=== PATIENT | female | born 1965 | race Caucasian/White ===

== ENCOUNTER 2019-01-09 08:12 | Day surgery (SDC) | payer BC ==
[~2019-01-09 08:12] MED LIST: Bacitracin Oint 1 GM U/D Packet ONE; Lidocaine 1% with EPINEPHrine 1:100,000 50 ML MDV ONE; Lidocaine/Prilocaine 2.5-2.5% Crm 5 GM Tube ONE; Mineral Oil 10 ML Bottle ONE
[2019-01-09] MEDS ORDERED: Sodium Chloride 0.9% 1,000 ML IV SCH (08:45)
[2019-01-09] MEDS ORDERED: ceFAZolin 2 GM in Premix Bag 1 BAG IV ONE (09:30)
[2019-01-09] MEDS ORDERED: Propofol 200 MG/20 ML SDV ONE ×2 (09:42→10:11)
[2019-01-09] MEDS ORDERED: Midazolam 1 MG/ML 2 ML SDV ONE (09:42)
[2019-01-09] MEDS ORDERED: fentaNYL 100 MCG/2 ML SDV ONE (09:42)
--- NOTE | 2019-01-09 12:45 | OR ---
DATE OF PROCEDURE: 01/09/2019 PROCEDURES: 1. Surgical preparation of recipient site by excision of open wound (36496). 2. Split-thickness skin graft, left Achilles (76964), area grafted 7.1 cm x 2.1 cm. COMPLICATIONS: None. SIX SIGMA PROJECT MANAGER: None. 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 RISKS: Risks, benefits, alternatives, and limitations including, but not limited to infection, bleeding, and revisional surgery required. The patient was also explained the higher risk due to her history of active smoking. PROCEDURE IN DETAIL: The patient was placed in right lateral decubitus position. The donor site would be from the left thigh. This was prepped and draped. Mineral oil was used to prep and the harvester was set at 15,000th. Two strips approximately 5 cm in size were able to be harvested. Minimal bleeding was controlled with lidocaine after harvest. Prior to this, the donor site had been prepared by excising the chronic wound area with a 15 blade and controlled with cautery and direct pressure. Once the donor site was prepared, the skin graft was meshed in a 1.5:1 ratio. Proper orientation was kept at all times to ensure no clipping of the graft. This was then secured into place with a combination of chromic sutures and patricia. dressings were then applied along with a gentle pressure dressing. The donor site received a DuoDerm with nine 5 mm holes punched within it and then secondary and tertiary dressings. The patient tolerated the procedure well. Ruben Coto MD /[id number]
== END 2019-01-09 11:49 | disposition home or self-care (01) ==
LOC: JP.SDS 08:12
PROVIDERS: ATTEND Surgery
DX: S86.012A Strain of left Achilles tendon, initial encounter (principal); F17.210 Nicotine dependence, cigarettes, uncomplicated; I10 Essential (primary) hypertension; Z88.5 Allergy status to narcotic agent
CPT/HCPCS: 15004; 15120; A9270; J2250; J2704; J3010; J7030

== ENCOUNTER 2019-07-10 08:18 | Day surgery (SDC) | payer BC ==
[2019-07-10] MEDS ORDERED: Sodium Chloride 0.9% 1,000 ML IV SCH (09:00)
[2019-07-10] MEDS ORDERED: ceFAZolin 2 GM in Sodium Chloride 0.9% 50 ML IV ONE (09:30)
[2019-07-10] MEDS ORDERED: Lidocaine/Prilocaine 2.5-2.5% Crm 5 GM Tube ONE (10:25)
[2019-07-10] MEDS ORDERED: Mineral Oil 10 ML Bottle ONE ×3 (10:26→10:29)
[2019-07-10] MEDS ORDERED: Lidocaine 1% with EPINEPHrine 1:100,000 50 ML MDV ONE (10:26)
[2019-07-10] MEDS ORDERED: Bacitracin Oint 28.35 GM Tube ONE (10:27)
[2019-07-10] MEDS ORDERED: Propofol 200 MG/20 ML SDV ONE ×2 (11:24→12:45)
[2019-07-10] MEDS ORDERED: Midazolam 1 MG/ML 2 ML SDV ONE ×2 (11:24→12:43)
[2019-07-10] MEDS ORDERED: fentaNYL 100 MCG/2 ML SDV ONE ×2 (11:24→13:10)
--- NOTE | 2019-07-10 15:28 | OR ---
DATE OF PROCEDURE: 07/10/2019 SURGEON: Ruben Coto MD PROCEDURES: 1. Surgical preparation of donor site left ankle/foot (68858). 2. Split-thickness left Achilles area/foot (28162). COMPLICATIONS: None. OYSTER WASHER: None. ANESTHESIA: MAC/local. PREOPERATIVE DIAGNOSIS: Chronic wound requiring a repeat skin graft in a smoker. POSTOPERATIVE DIAGNOSIS: Chronic wound requiring a repeat skin graft in a smoker. PROCEDURE IN DETAIL: The patient was placed in a supine position. The donor site would be the left leg. This was harvested in the anterior thigh using a 15,000th dermatome. The area of harvesting was approximately 1 cm x 2.5 cm. Surgical preparation of the donor site was performed by excising the nonviable tissue using a 15 blade. The graft was then meshed in a 1.5:1 ratio. This was then hand sewed using a fast dissolving chromic suture. The donor site then had a DuoDerm with 3 mm holes punched in x9 and then an Pito dressing. The recipient site had bacitracin, Adaptic, 4x4s, Kerlix, and Pito along with placement of Cam boot. The patient tolerated the procedure well. Ruben Coto MD /[id number]
== END 2019-07-10 15:02 | disposition home or self-care (01) ==
LOC: JP.SDS 08:18
PROVIDERS: ATTEND Surgery
DX: S81.802A Unspecified open wound, left lower leg, initial encounter (principal); I10 Essential (primary) hypertension; F17.210 Nicotine dependence, cigarettes, uncomplicated; F10.10 Alcohol abuse, uncomplicated; X58.XXXA Exposure to other specified factors, initial encounter; Z79.899 Other long term (current) drug therapy
CPT/HCPCS: A9270-GY; J0690; J2250; J2704; J3010; J7030; J7050

== ENCOUNTER 2024-05-24 18:55 | Inpatient (IN) | payer BC ==
[2024-05-24 19:28] LABS: BASOPHILS ABSOLUTE AUTO 0.03 K/uL (0.00-0.10); BASOPHILS PERCENT AUTO 0.2 % (0.1-1.3); EOSINOPHILS ABSOLUTE AUTO 0.02 K/uL (0.00-0.40); EOSINOPHILS PERCENT AUTO 0.1 % (0.0-5.4); HEMATOCRIT 39.5 % (34.3-46.0); IMMATURE GRAN ABSOLUTE AUTO 0.07 K/uL (0.00-0.23); IMMATURE GRAN PERCENT AUTO 0.4 % (0.0-0.7); LYMPHOCYTES ABSOLUTE AUTO 0.81 K/uL (0.8-3.3); LYMPHOCYTES PERCENT AUTO 5.2 % (11.4-47.7); MEAN CORPUSCULAR HGB CONC 35.4 g/dL (31.6-35.5); MEAN CORPUSCULAR VOLUME 104.5 fL (81.4-99.0); MONOCYTES ABSOLUTE AUTO 1.07 K/uL (0.20-0.90); MONOCYTES PERCENT AUTO 6.8 % (3.3-12.6); NEUTROPHILS ABSOLUTE AUTO 13.64 K/uL (1.0-7.6); NEUTROPHILS PERCENT AUTO 87.3 % (40.0-78.1); PLATELET COUNT,PLT 176 K/uL (130-375); RED BLOOD CELL COUNT 3.78 M/uL (3.77-5.24); WHITE BLOOD CELL COUNT,WBC 15.6 K/uL (3.2-11.0)
[2024-05-24] MEDS: fentaNYL 100 MCG/2 ML SDV IVPUSH ONE ×2 (19:28→21:43)
[2024-05-24] MEDS: Sodium Chloride 0.9% 10 ML Syringe FLUSH ONE ×2 (19:31→22:21)
[2024-05-24 19:43] LABS: CALCIUM 9.8 mg/dL (8.5-10.1); CREATININE 1.1 mg/dL (0.6-1.0); EST CRCL DRUG DOSING (CG) 56.92 mL/min; POTASSIUM,K 3.9 mmol/L (3.6-5.2)
[2024-05-24 19:46] LABS: ANION GAP 15.9 mmol/L (5.0-14.0)
[2024-05-24] MEDS: Iopamidol 612 MG/ML 100 ML Bottle IV SCH ×2 (20:58→22:21)
[2024-05-24] MEDS: Sodium Chloride 0.9% 60 ML IV SCH ×2 (20:58→22:21)
[2024-05-24 22:30] LABS: A/G RATIO 1.1 (1.2-2.2); ALBUMIN 4.2 g/dL (3.4-5.0); BILIRUBIN DIRECT 0.3 mg/dL (0.0-0.2); BILIRUBIN INDIRECT 0.4; BILIRUBIN TOTAL 0.7 mg/dL (0.2-1.0); PROTEIN TOTAL,TP 7.9 g/dL (6.4-8.2)
[2024-05-24] MEDS: Lidocaine 1% with EPINEPHrine 1:100,000 20 ML MDV INJECT ONE (23:20)
[2024-05-24] MEDS: Bupivacaine 0.5%/EPINEPHrine 1:200,000 50 ML MDV NERVRT ONE (23:20)
[2024-05-25] MEDS: fentaNYL 100 MCG/2 ML SDV IVPUSH ONE (00:05)
[2024-05-25] MEDS ORDERED: Ketorolac 30 MG/ML SDV IVPUSH PRN (00:22)
[2024-05-25] MEDS ORDERED: Ondansetron 4 MG/2 ML SDV IVPUSH PRN (00:22)
[2024-05-25] MEDS ORDERED: fentaNYL 100 MCG/2 ML SDV IVPUSH PRN ×3 (00:22)
[2024-05-25] MEDS: Povidone-Iodine 10% Soln 118.25 ML Bottle TOP SCH (00:49)
[2024-05-25] MEDS ORDERED: fentaNYL 50 MCG/ML SDV IVPUSH PRN (01:02)
[2024-05-25] MEDS ORDERED: Naloxone 0.4 MG/ML SDV IVPUSH PRN (01:02)
[2024-05-25] MEDS: Cyclobenzaprine 10 MG Tab PO PRN (01:15)
[2024-05-25] MEDS: Ketorolac 30 MG/ML SDV IVPUSH SCH (01:22)
[2024-05-25] MEDS: Nicotine 21 MG/24 Hr Patch TRDERM PRN (01:25)
[2024-05-25] MEDS: Acetaminophen/oxyCODONE 325-5 MG Tab PO PRN (04:30)
[2024-05-25 09:04] LABS: APPEARANCE,URINE CLEAR (CLEAR); BILIRUBIN,URINE NEGATIVE (NEGATIVE); COLOR,URINE YELLOW (YELLOW); GLUCOSE,URINE NEGATIVE (NEGATIVE); KETONES,URINE NEGATIVE (NEGATIVE); LEUKOCYTE ESTERASE,URINE NEGATIVE (NEGATIVE); NITRITE,URINE NEGATIVE (NEGATIVE); OCCULT BLOOD,URINE NEGATIVE (NEGATIVE); PH,URINE 5.5 (5.0-8.0); PROTEIN,URINE NEGATIVE (NEGATIVE); UROBILINOGEN,URINE 0.2 EU/dL (0.2-1.0)
[2024-05-25 09:15] LABS: AMORPHOUS SEDIMENT,URINE NOT SEEN; BACTERIA,URINE FEW; EPITHELIAL CELLS,URINE FEW; MUCUS,URINE NOT SEEN; RBC,URINE NOT SEEN (0-5); WBC,URINE 0-5 (0-5)
[2024-05-25] MEDS: Lisinopril 20 MG Tab PO SCH (09:22)
[2024-05-25] MEDS: Enoxaparin 40 MG/0.4 ML Syringe SUBCUT SCH (10:55)
[2024-05-26 04:59] LABS: BASOPHILS PERCENT AUTO 0.3 % (0.1-1.3); EOSINOPHILS ABSOLUTE AUTO 0.08 K/uL (0.00-0.40); EOSINOPHILS PERCENT AUTO 1.2 % (0.0-5.4); HEMATOCRIT 35.7 % (34.3-46.0); HEMOGLOBIN 12.7 g/dL (11.2-15.5); IMMATURE GRAN PERCENT AUTO 0.3 % (0.0-0.7); LYMPHOCYTES ABSOLUTE AUTO 1.67 K/uL (0.8-3.3); LYMPHOCYTES PERCENT AUTO 24.5 % (11.4-47.7); MEAN CORPUSCULAR HEMOGLOBIN 37.2 pg (31.6-35.5); MEAN CORPUSCULAR HGB CONC 35.6 g/dL (31.6-35.5); MEAN CORPUSCULAR VOLUME 104.7 fL (81.4-99.0); MONOCYTES PERCENT AUTO 10.3 % (3.3-12.6); NEUTROPHILS ABSOLUTE AUTO 4.32 K/uL (1.0-7.6); NEUTROPHILS PERCENT AUTO 63.4 % (40.0-78.1); PLATELET COUNT,PLT 138 K/uL (130-375); RED BLOOD CELL COUNT 3.41 M/uL (3.77-5.24); WHITE BLOOD CELL COUNT,WBC 6.8 K/uL (3.2-11.0)
[2024-05-26 05:10] LABS: BASOPHILS ABSOLUTE AUTO 0.02 K/uL (0.00-0.10); IMMATURE GRAN ABSOLUTE AUTO 0.02 K/uL (0.00-0.23)
[2024-05-26] MEDS ORDERED: Sodium Chloride 0.9% 10 ML Syringe IV PRN (10:44)
[2024-05-27 05:45] LABS: BASOPHILS ABSOLUTE AUTO 0.04 K/uL (0.00-0.10); BASOPHILS PERCENT AUTO 0.8 % (0.1-1.3); EOSINOPHILS ABSOLUTE AUTO 0.14 K/uL (0.00-0.40); EOSINOPHILS PERCENT AUTO 2.7 % (0.0-5.4); HEMATOCRIT 35.4 % (34.3-46.0); HEMOGLOBIN 12.5 g/dL (11.2-15.5); IMMATURE GRAN ABSOLUTE AUTO 0.05 K/uL (0.00-0.23); LYMPHOCYTES ABSOLUTE AUTO 2.15 K/uL (0.8-3.3); LYMPHOCYTES PERCENT AUTO 41.7 % (11.4-47.7); MEAN CORPUSCULAR HEMOGLOBIN 37.2 pg (31.6-35.5); MEAN CORPUSCULAR HGB CONC 35.3 g/dL (31.6-35.5); MEAN CORPUSCULAR VOLUME 105.4 fL (81.4-99.0); MONOCYTES ABSOLUTE AUTO 0.55 K/uL (0.20-0.90); MONOCYTES PERCENT AUTO 10.7 % (3.3-12.6); NEUTROPHILS ABSOLUTE AUTO 2.22 K/uL (1.0-7.6); NEUTROPHILS PERCENT AUTO 43.1 % (40.0-78.1); PLATELET COUNT,PLT 144 K/uL (130-375); RED BLOOD CELL COUNT 3.36 M/uL (3.77-5.24); WHITE BLOOD CELL COUNT,WBC 5.2 K/uL (3.2-11.0)
[2024-05-28 05:31] LABS: BASOPHILS ABSOLUTE AUTO 0.03 K/uL (0.00-0.10); BASOPHILS PERCENT AUTO 0.6 % (0.1-1.3); EOSINOPHILS ABSOLUTE AUTO 0.17 K/uL (0.00-0.40); EOSINOPHILS PERCENT AUTO 3.3 % (0.0-5.4); HEMATOCRIT 33.9 % (34.3-46.0); HEMOGLOBIN 12.2 g/dL (11.2-15.5); IMMATURE GRAN PERCENT AUTO 0.4 % (0.0-0.7); LYMPHOCYTES ABSOLUTE AUTO 1.88 K/uL (0.8-3.3); LYMPHOCYTES PERCENT AUTO 36.7 % (11.4-47.7); MEAN CORPUSCULAR HEMOGLOBIN 37.4 pg (31.6-35.5); MONOCYTES ABSOLUTE AUTO 0.52 K/uL (0.20-0.90); MONOCYTES PERCENT AUTO 10.2 % (3.3-12.6); NEUTROPHILS PERCENT AUTO 48.8 % (40.0-78.1); PLATELET COUNT,PLT 146 K/uL (130-375); RED BLOOD CELL COUNT 3.26 M/uL (3.77-5.24); WHITE BLOOD CELL COUNT,WBC 5.1 K/uL (3.2-11.0)
[2024-05-28 05:46] LABS: IMMATURE GRAN ABSOLUTE AUTO 0.02 K/uL (0.00-0.23)
== END 2024-05-28 11:15 | disposition home or self-care (01) | DRG 930 ==
LOC: JP.ED 18:55 → JP.MS 05-25 00:04
PROVIDERS: ADMIT Surgery; ATTEND Surgery
PROC: 0WP9X0Z Removal of Drainage Device from Right Pleural Cavity, External Approach (ICD-10-PCS; principal; 2024-05-25)
PROC: 0W9930Z Drainage of Right Pleural Cavity with Drainage Device, Percutaneous Approach (ICD-10-PCS; 2024-05-25)
DX: S22.41XA Multiple fractures of ribs, right side, initial encounter for closed fracture (principal); S27.0XXA Traumatic pneumothorax, initial encounter; S32.591A Other specified fracture of right pubis, initial encounter for closed fracture; I10 Essential (primary) hypertension; F17.210 Nicotine dependence, cigarettes, uncomplicated; Z88.5 Allergy status to narcotic agent; Z79.899 Other long term (current) drug therapy; V80.010A Animal-rider injured by fall from or being thrown from horse in noncollision accident, initial encounter
CPT/HCPCS: 32551; 36415; 71045; 71045-26; 71046; 71046-26; 71260; 73502-26-RT; 73502-RT; 73552-26-LT; 73552-RT; 74177; 80048; 80076; 81001; 83605; 85018; 85025; 96374; 96376; 97116-GP; 97140-GP; 97162-GP; 97165-GO; 97530-GP; 97535-GO; 99285; 99285-25; A9270-GY; J1650; J1885; J3010; J3490; Q9967